=== PATIENT | female | born 1985 ===

== ENCOUNTER 2017-03-04 10:16 | Emergency (ER) | payer OTHER ==
[2017-03-04 12:11] LABS: HEMATOCRIT 31.8 % (34.0-47.0); MEAN CELL VOLUME 60.8 fl (81.0-99.0); MEAN CORPUSCULAR HEMOGLOBIN 18.1 pg (27.0-31.0); MEAN CORPUSCULAR HGB CONC 29.8 g/dL (33.0-37.0); RED CELL DISTRIBUTION WIDTH 19.4 % (11.5-14.5); WHITE BLOOD COUNT 10.8 K/uL (4.8-10.8)
[2017-03-04 12:22] LABS: ALB/GLOB RATIO 1.2 (1.0-2.1); ALKALINE PHOSPHATASE 81 U/L (38-126); ALT/SGPT 11 U/L (9-52); AST/SGOT 29 U/L (14-36); BILIRUBIN,TOTAL 0.4 mg/dl (0.2-1.3); BLOOD UREA NITROGEN 12 mg/dl (7-17); CALCIUM 9.3 mg/dL (8.4-10.2); CARBON DIOXIDE 26 mmol/L (22-30); CHLORIDE 104 mmol/L (98-107); GFR AFRICAN-AMERICAN > 60; GLUCOSE,RANDOM 88 mg/dL (65-105); POTASSIUM 4.9 MMOL/L (3.6-5.0); SODIUM 143 mmol/l (132-148); TOTAL PROTEIN 7.9 G/DL (6.3-8.2)
--- NOTE | 2017-03-04 12:56 | US ---
PROCEDURE: Soft tissue limited ultrasound HISTORY: left groin COMPARISON: Not available TECHNIQUE: Ultrasound examination of the left inguinal region was performed for evaluation of a palpable mass FINDINGS: There is an atypical lymph node in the left inguinal region measuring 2.1 x 1.9 x 2.8 cm. There is marked cortical thickening, up to 8 mm. This lymph node is hypervascular. Immediately adjacent to a lymph node there is an irregular fluid collection measuring 1.9 x 1.3 x 1.2 cm. The possibility of an abscess must be considered. There is no other solid or cystic mass identified in the left inguinal region. Evaluation of the right inguinal region demonstrates an unremarkable lymph node, 1.8 cm in greatest dimension, without significant cortical thickening. IMPRESSION: Atypical left inguinal lymph node with cortical thickening and hypervascularity. Immediately adjacent is an irregular fluid collection, 1.9 cm greatest dimension. Cortical thickening and hypervascularity in a lymph node are nonspecific findings. The possibility of an abscess immediately adjacent to this lymph node should be considered although the findings again are nonspecific.
[2017-03-04 13:22] LABS: RBC URINE 3 /hpf (0-3); URINE BACTERIA MOD (<OCC); URINE BILIRUBIN NEGATIVE (NEGATIVE); URINE BLOOD NEGATIVE (NEGATIVE); URINE COLOR AMBER (YELLOW); URINE GLUCOSE (UA) NEG (Normal); URINE KETONE NEGATIVE (NEGATIVE); URINE LEUKOCYTE ESTERASE MOD Leu/uL (Negative); URINE PROTEIN 30 mg/dL (NEGATIVE); URINE UROBILINOGEN 0.2-1.0 mg/dL (0.2-1.0); WBC URINE 38 /hpf (0-5)
[2017-03-04 14:15] VITALS: BP 128/78; PULSE 78; RESP 20; TEMP 98.6; O2SAT 98
--- NOTE | 2017-03-04 14:52 | ED PDOC ---
HPI: General Adult Time Seen by Provider: 03/04/17 10:42 Chief Complaint (Nursing): Female Genitourinary History Per: Patient History/Exam Limitations: no limitations Current Symptoms Are (Timing): Still Present Additional Complaint(s): 31-year-old female, presents to the emergency department with complaints of a palpable mass to the left groin x3 days. Patient states she has had abscesses in the past, but this is different, and is painful to touch. Denies nausea/ vomiting, or any medications for pain. Past Medical History Reviewed: Historical Data, Nursing Documentation, Vital Signs Vital Signs: Last Vital Signs Temp 98.6 F 03/04/17 14:13 Pulse 78 03/04/17 14:13 Resp 20 03/04/17 14:13 BP 128/78 03/04/17 14:13 Pulse Ox 98 03/04/17 14:56 - Family History Family History: States: Unknown Family Hx - Home Medications Home Medications: Ambulatory Orders Medication Instructions Recorded Sulfamethoxazole/Trimethoprim 1 each PO BID #20 tablet 03/04/17 [Bactrim 400-80 mg Tablet] - Allergies Allergies/Adverse Reactions: Allergies Allergy/AdvReac Type Severity Reaction Status Date / Time No Known Allergies Allergy Verified 03/04/17 10:36 Review of Systems ROS Statement: Except As Marked, All Systems Reviewed And Found Negative Constitutional: Negative for: Fever, Chills Respiratory: Negative for: Cough, Shortness of Breath Gastrointestinal: Negative for: Nausea, Vomiting Genitourinary Female: Positive for: Other (groin pain). Negative for: Vaginal Discharge, Vaginal Bleeding Skin: Negative for: Rash Physical Exam - Reviewed Nursing Documentation Reviewed: Yes Vital Signs Reviewed: Yes - Physical Exam Appears: Positive for: Non-toxic, No Acute Distress Head Exam: Positive for: ATRAUMATIC, NORMOCEPHALIC Skin: Positive for: Warm, Dry. Negative for: Rash Eye Exam: Positive for: Normal appearance, EOMI Neck: Positive for: Painless ROM Cardiovascular/Chest: Positive for: Regular Rate, Rhythm Respiratory: Negative for: Accessory Muscle Use, Respiratory Distress Gastrointestinal/Abdominal: Positive for: Soft. Negative for: Tenderness Pelvic Exam: Positive for: External Exam Normal, Other (Left groin: there is a tender mass, that is consistent with enlarged lymph node. ) Extremity: Positive for: Normal ROM Neurologic/Psych: Positive for: Alert, Oriented - Laboratory Results Result Diagrams: 03/04/17 12:05 03/04/17 12:05 - ECG O2 Sat by Pulse Oximetry: 98 - Progress ED Course And Treament: Accession No. : [id number] Patient Name / ID : NANCY ALCALA / [id number] Exam Date : 03/04/2017 12:09:33 ( Approved ) Study Comment : Sex / Age : F / 31Y Creator : Vernon Marie MD Dictator : Vernon Marie MD Supervisor Electronic Coils : Senior Director Creative Services : Vernon Marie MD Approver2 : Report Date : 03/04/2017 12:54:52 My Comment : PROCEDURE: Soft tissue limited ultrasound HISTORY: left groin COMPARISON: Not available TECHNIQUE: Ultrasound examination of the left inguinal region was performed for evaluation of a palpable mass FINDINGS: There is an atypical lymph node in the left inguinal region measuring 2.1 x 1.9 x 2.8 cm. There is marked cortical thickening, up to 8 mm. This lymph node is hypervascular. Immediately adjacent to a lymph node there is an irregular fluid collection measuring 1.9 x 1.3 x 1.2 cm. The possibility of an abscess must be considered. There is no other solid or cystic mass identified in the left inguinal region. Evaluation of the right inguinal region demonstrates an unremarkable lymph node, 1.8 cm in greatest dimension, without significant cortical thickening. IMPRESSION: Atypical left inguinal lymph node with cortical thickening and hypervascularity. Immediately adjacent is an irregular fluid collection, 1.9 cm greatest dimension. Cortical thickening and hypervascularity in a lymph node are nonspecific findings. The possibility of an abscess immediately adjacent to this lymph node should be considered although the findings again are nonspecific Medical Decision Making Medical Decision Making: Plan * CMP * CBC * Urine Culture * Soft tissue US * Reassess and Disposition Scribe Attestation: Documented by Rowdy Boone, acting as a scribe for STEVE Sierra. Provider Scribe Attestation: All medical record entries made by the Scribe were at my direction and personally dictated by me. I have reviewed the chart and agree that the record accurately reflects my personal performance of the history, physical exam, medical decision making, and the department course for this patient. I have also personally directed, reviewed, and agree with the discharge instructions and disposition. Disposition - Clinical Impression Clinical Impression: UTI (urinary tract infection) - Disposition Referrals: [facility] [place] [Outside] Disposition: Routine/Home Disposition Time: 18:56 Condition: STABLE Prescriptions: Sulfamethoxazole/Trimethoprim [Bactrim 400-80 mg Tablet] 1 each PO BID #20 tablet Instructions: Urinary Tract Infection in Women (ED), Lymphadenopathy (ED)
== END 2017-03-04 14:15 | disposition home or self-care (01) ==
LOC: H.ER 10:16
DX: N39.0 Urinary tract infection, site not specified (principal)